=== PATIENT | female | born 1995 | race Two or more races ===

== ENCOUNTER 2020-10-10 19:59 | Emergency (ER) | payer MEDICAID ==
[~2020-10-10] VITALS: Ht 157.5 cm; Wt 77.1 kg
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
[2020-10-10] MEDS ORDERED: ACETAMINOPHEN ES 500 MG TABLET PO ONE (20:30)
[2020-10-10] MEDS ORDERED: ACETAMINOPHEN ES 500 MG TABLET ONE (20:39)
--- NOTE | 2020-10-10 20:43 | NUR ---
Patient down for Cervical/Spine XR at this time
--- NOTE | 2020-10-10 20:49 | NUR ---
Patient back from Radiology
[2020-10-10] MEDS ORDERED: KETOROLAC TROMETHAMINE 30 MG INJ ONE (21:09)
[2020-10-10] MEDS ORDERED: KETOROLAC TROMETHAMINE 30 MG INJ IM ONE (21:15)
[2020-10-10 21:19] VITALS: BP 119/72
[2020-10-10] MEDS ORDERED: IBUP-1955 PO (21:22)
--- NOTE | 2020-10-10 21:30 | NUR ---
Patient discharged to home in stable condition. Written and verbal after care instructions given. Patient verbalizes understanding of instructions. Stressed follow up or return to ER for worsening s/s. Neuro check done. Instructed not to drive. Belongings with patient. Steady gait.
== END 2020-10-10 21:28 | disposition home or self-care (01) ==
LOC: ER 20:04
DX: S13.9XXA Sprain of joints and ligaments of unspecified parts of neck, initial encounter (principal); V49.40XA Driver injured in collision with unspecified motor vehicles in traffic accident, initial encounter; Y92.410 Unspecified street and highway as the place of occurrence of the external cause; M54.9 Dorsalgia, unspecified; R51.9 Headache, unspecified
CPT/HCPCS: A4663; A9150; J1885